=== PATIENT | female | born 1940 | race Caucasian/White ===

== ENCOUNTER 2016-10-09 17:15 | Emergency (ER) | payer MEDICARE ==
[~2016-10-09] VITALS: Ht 152.4 cm; Wt 55.9 kg
[2016-10-09 17:18] VITALS: BP 149/84; PULSE 87; RESP 18; O2SAT 94
[2016-10-09 17:35] LABS: BASOPHILS % (AUTO) 0.5 % (0-3); MONOCYTES % (AUTO) 10.6 % (4-12); Mean Corpuscular Hemoglobin 30.4 pg (27.0-35.0); Mean Corpuscular Volume 92.7 fL (81-100); Platelet Count 298 bil/L (150-400)
--- NOTE | 2016-10-09 17:47 | ED.REPORT ---
HPI-Chest Pain 40 and Over Date of Service Oct 09, 2016 ED Provider: Jarrett Royal MD This patient is a 76 year old female with a history of COPD presenting to the ED complaining of exacerbation of COPD with achy chest pain and SOB that started today. Since 09/28/2016, she states that she has been fatigued and her voice has been raspy. She states that she has not had pain since today's episode that ended one hour ago. She has cough with sputum but denies fever, congestion, sore throat, vision changes, headache, vomiting, diarrhea, dysuria, or leg edema. She is a former smoker. She has an appointment with Dr. Luo, fiscal agent, next week. She denies history of GA or stroke. Nursing Notes Stated Complaint: CHEST PAIN Chief Complaint: Chest Pain Nursing Notes Reviewed: Yes Allergies: Coded Allergies: shrimp (Verified Allergy, Severe, 10/09/16) amoxicillin (Verified Adverse Reaction, Intermediate, 10/09/16) n/v/d clavulanic acid (Verified Adverse Reaction, Intermediate, 10/09/16) n/v/d General Time Seen by MD: 17:47 Chief Complaint Shortness of breath Hx Obtained From: Patient Arrived By: Walk-in Sudden in Onset?: Yes Onset Occurred: Onset unknown (Chronic) Symptom Duration: Since onset Location: : Substernal Quality: Aching Radiation: : Does not radiate Severity: Current: Mild Severity: Maximum: Mild Recent Healthcare: No recent hospitalization Similar Sx Previous: Yes Past Medical History Past Medical History denies history of clot Reports: COPD, Denies: Stroke Past Surgical History none reported Smoking History Former Smoker Ambulatory Status Independent Review of Systems Constitutional: Reports: Fatigue, Denies: Fever Respiratory: Reports: Prod cough, yellow, Shortness of breath Cardiovascular: Reports: Chest pain, Denies: Edema GI: Denies: Diarrhea, Vomiting Neurologic: Denies: Headache, Vision change Complete sys rev & neg: except as marked. Female: Denies: Dysuria Physical Exam Initial Vital Signs Vital Signs (First) Date Time Temp Pulse Resp B/P Pulse Ox O2 Delivery O2 Flow Rate FiO2 10/09/16 17:18 36.4 87 18 149/84 94 Room Air Initial VS: Reviewed Head / Eyes: Atraumatic, Normocephalic, PERRL ENT: Mucous membranes moist, Conjunctiva normal, No scleral icterus Lymphatic: No lymphadenopathy Neurologic: Alert, Oriented Psychiatric: Mood/affect normal, Behavior normal, Normal thought content General/Constitutional: Awake, Alert Respiratory / Chest: Atraumatic, Breath sounds = bilat, No respiratory distress Diminished bilaterally, Crackles on left side Cardiovascular: Heart rate NL, Regular rhythm, Heart sounds NL Abdomen: Atraumatic, Soft, Non-tender Neck: Atraumatic, Supple, Full range of motion, No JVD Lower Extremity / Pelvis / MS: No edema Skin: Atraumatic, Color NL, No rash, Warm, Dry Well perfused Interpretation & Diagnostics Lab Results Interpretation Result Diagram: 10/09/16 1730 10/09/16 1730 Test 10/09/16 17:30 10/09/16 20:24 White Blood Count 9.3th/mm3 (3.8-10.1) Red Blood Count 4.54mil/mm3 (3.90-5.20) Hemoglobin 13.8g/dL (12.0-15.6) Hematocrit 42.1% (35.0-46.0) Mean Corpuscular Volume 92.7fL (81-100) Mean Corpuscular Hemoglobin 30.4pg (27.0-35.0) Mean Corpuscular Hemoglobin Concent 32.8% (32.0-37.0) Red Cell Distribution Width 14.1% (12.3-15.4) Platelet Count 298bil/L (150-400) Neutrophils (%) (Auto) 76.0% (40-74) Lymphocytes (%) (Auto) 10.8% (14-46) Monocytes (%) (Auto) 10.6% (4-12) Eosinophils (%) (Auto) 2.0% (0-5) Basophils (%) (Auto) 0.5% (0-3) D-Dimer < 0.5mg/L (<0.50) Sodium Level 137mEq/L (134-144) Potassium Level 3.9mEq/L (3.5-5.2) Chloride Level 97mEq/L (97-108) Carbon Dioxide Level 24mmol/L (18-29) Blood Urea Nitrogen 16mg/dL (8-27) Creatinine 0.66mg/dL (0.57-1.00) Estimat Glomerular Filtration Rate 125mL/min (>59) Glucose Level 100mg/dL (60-99) Calcium Level 9.4mg/dL (8.5-10.1) Magnesium Level 2.2mg/dL (1.6-2.6) Total Bilirubin 0.3mg/dL (0.0-1.2) Aspartate Amino Transf (AST/SGOT) 22U/L (0-50) Alanine Aminotransferase (ALT/SGPT) 17U/L (0-32) Alkaline Phosphatase 77U/L (25-165) Total Protein 7.3g/dL (6.4-8.4) Albumin 4.1g/dL (3.4-5.0) Troponin T < 0.010ug/L (0.0-0.011) Pulse Oximetry Interpretation Pulse Oximetry Interpretation: 94% on room air Pulse Oximetry: Pulse Ox normal ECG Interpretation ECG Interpretation: Normal sinus rhythm with a rate of 82, No ST elevation or depression Time: 17:30 Interpreted by: ED physician Normal ECG Interpretation: Normal rate, Normal sinus rhythm Abnormal T wave or ST segment: Non-specific ST changes X-Ray Chest Interpretation Chest Xray Interpretation: IMPRESSION: No acute cardiopulmonary disease process. Dictated by: Skye Keith MD, PhD on 10/09/2016 at 18:13 Interpretation / Wet Read by: Interpret - Radiologist Re-Eval/Medical Decision Med Decision/Clinical Course This is a very bebo 76-year-old female who suffers with chronic obstructive pulmonary disease. For the past few days she has had increasing cough and dyspnea on exertion. She has used her bronchodilators without relief. Today she had very mild chest heaviness associated with respiration. She did not have any classic anginal symptoms. She did not have any exertional chest tightness. Symptoms she felt felt her reminiscent of prior COPD attacks. She does not have a history of coronary disease, myocardial infarction or aortic dissection. On examination her vitals are stable and she is no distress. She did have poor air entry into the bases of her lungs as well as wheeze in the left lung and crackles in the left lung. Remainder of her exam was very benign. She is treated with bronchodilators and IV steroids and antibiotics. She felt much better. Repeat pulmonary examination was normal with good air entry. Chest x-ray is reassuring. Pneumothorax ruled out. Pneumonia seems unlikely with the normal chest x-ray and laboratory work. She is low risk well score and the negative d-dimer rules out pulmonary emboli effectively. I have a low clinical suspicion for pulmonary emboli. Serial troponins were negative. I have a low clinical suspicion for an acute coronary syndrome. Liliana did very well. GA was ruled out. At discharge she was completely asymptomatic and wished to go home. She will follow up closely with her primary care physician and return if she has any problems or any worsening symptoms. Time of Eval: 20:12 Patient Status: Condition improved Re-Evaluation/Progress Note: Pt. rechecked. Her condition has improved. Patient's plan for discharge has been discussed. Patient understands and agrees with the plan. All questions have been addressed at this time. Counseled Regarding: Diagnosis, Lab results, Need for follow-up, When/why to return to ED Discharge & Departure Primary Impression: Acute exacerbation of chronic obstructive pulmonary disease (COPD) Additional Impression: Chest pain Chest pain type: chest pain on breathing Qualified Code: R07.1 - Chest pain on breathing Disposition: Home ( ) Discharge Condition All VS Reviewed: Yes Condition: Stable Patient Instructions: Chest Pain (ED), Chronic Obstructive Pulmonary Disease ( ED) Additional Instructions: Prednisone daily for 4 more days. Doxycycline twice daily for 5 days. Your ekg , heart blood tests and blood clot blood test were all reassuring. I suspect that you are having an exacerbation of COPD and infection is often the cause of this. Return to the emergency department if you have any problems or any worsening symptoms. Call your DrShan tomorrow to set up a follow up for the next couple of days. Referrals: Carin Aly (PCP) Karenibe Attestation Portions of this note were transcribed by Donovan Calvillo and Jazzmine Velasquez. I, Dr. Royal, personally performed the history, physical exam and medical decision- making; I reviewed and confirmed the accuracy of the information in the transcribed note. Signed by: Donovan Calvillo and Sharon Bourgeois, 10/09/2016 and 19:31. copies to: Carin Aly Todd P DO Oct 09, 2016 17:47 Olga Velasquez [Jazzmine] Oct 09, 2016 18:31 DONOVAN CALVILLO Oct 09, 2016 18:41
[2016-10-09 18:08] LABS: TROPONIN T < 0.010 ug/L (0.0-0.011)
[2016-10-09 18:12] VITALS: BP 158/83; PULSE 84; RESP 18
[2016-10-09 18:12] LABS: Magnesium 2.2 mg/dL (1.6-2.6)
--- NOTE | 2016-10-09 18:15 | DRSVH ---
PROCEDURE: X-RAY CHEST ONE VIEW, PORTABLE ([id number]) INDICATIONS: chest pain TECHNIQUE: One view of the chest was acquired. COMPARISON: [facility], CT, CT CHEST WO CON, 11/23/2015, 15:39. FINDINGS: Surgical changes and devices: None. Lungs and pleura: No pleural effusions or pneumothorax. Lungs are clear. Emphysematous changes note d in the lungs bilaterally. Mediastinum: Mediastinal contours appear normal. Heart size is normal. Bones and chest wall: No suspicious bony lesions. Overlying soft tissues appear unremarkable. IMPRESSION: No acute cardiopulmonary disease process. Dictated by: Skye Keith MD, PhD on 10/09/2016 at 18:13 Approved by: Skye Keith MD, PhD on 10/09/2016 at 18:13
[2016-10-09] MEDS ORDERED: Albuterol-Ipratropium 3 mL Inhalation Solution NEB PRN (18:20)
[2016-10-09] MEDS ORDERED: MethylprednisoLONE Sodium Succinate 62.5 mg/mL 2 mL Inj IVPUSH ONE (18:20)
[2016-10-09] MEDS ORDERED: levoFLOXacin Inj 500 MG in IV Premix 1 EACH IV ONE (18:20)
[2016-10-09 18:48] VITALS: PULSE 77; RESP 18; O2SAT 95
[2016-10-09 20:30] VITALS: BP 156/73; PULSE 89; RESP 20; O2SAT 93
== END 2016-10-09 20:39 | disposition home or self-care (01) ==
LOC: SED 17:15
DX: J44.1 Chronic obstructive pulmonary disease with (acute) exacerbation (principal); R07.1 Chest pain on breathing; Z87.891 Personal history of nicotine dependence; Z88.0 Allergy status to penicillin
CPT/HCPCS: 36415; 71010; 80053; 82948; 83735; 84484; 85025; 85379; 93005; 94664; 96365; 96375; 99285; J2930

== ENCOUNTER 2017-02-16 13:41 | Emergency (ER) | payer MEDICARE ==
[~2017-02-16] VITALS: Ht 154.9 cm; Wt 57.7 kg
[2017-02-16 13:46] VITALS: BP 151/96; PULSE 91; RESP 16; O2SAT 94
[2017-02-16] MEDS ORDERED: Albuterol-Ipratropium 3 mL Inhalation Solution NEB ONE (15:05)
[2017-02-16 15:31] VITALS: BP 172/85; PULSE 84; RESP 11; O2SAT 93
--- NOTE | 2017-02-16 15:52 | ED.REPORT ---
HPI-Overdose/Alcohol Toxicity Date of Service February 16, 2017 ED Provider: Thomas Maya MD Patient is a 76 year old female with a hx of alcoholism and COPD who presents to the ED complaining of alcohol withdrawals. She reports that she was drinking beer for 2 weeks until yesterday afternoon. Associated symptoms include diarrhea , tremors, and vomiting (onset this morning). She denies fever, melena, hematochezia, lightheadedness, or any other symptoms. She has been taking Benadryl (2-3 pills a day) to reduce her shaking. She denies a hx of seizures during withdrawal. She denies having alcohol at home. Nursing Notes Stated Complaint: ALCOHOL WITHDRAWAL Chief Complaint: Substance Abuse Nursing Notes Reviewed: Yes Allergies: Coded Allergies: shrimp (Verified Allergy, Severe, 02/16/17) amoxicillin (Verified Adverse Reaction, Intermediate, 02/16/17) n/v/d clavulanic acid (Verified Adverse Reaction, Intermediate, 02/16/17) n/v/d Scheduled Lorazepam (Lorazepam) 1 Mg Tablet 1 MG PO ASDIRECTED General Time Seen by Provider: 15:51 Chief Complaint Other (EtOH abuse ) Hx Obtained From: Patient Arrived By: Walk-in Onset Occurred: Yesterday Similar Sx Previous: Yes Risk-Overdose/Alcohol Tox )( Suicide Risk Stratification : Alcohol use: Previous attemptNo: Substance abuse RF Statements: Risk factors reviewed Past Medical History Past Medical History denies history of clot EtOH abuse Reports: COPD, Hypertension, Denies: Congestive heart failure, Coronary artery disease, Diabetes mellitus Denies: Atrial fibrillation, Seizure disorder Past Surgical History Reports: Tonsillectomy Smoking History Former Smoker Social History Father was alcoholic. Son committed suicide Alcohol Use: In recovery Drug Use: Denies drug use Other Social History: , Local resident Ambulatory Status Independent Review of Systems +alcohol withdrawal Constitutional: Denies: Fever GI: Reports: Diarrhea, Vomiting, Denies: Hematochezia, Melena Neurologic: Reports: Shaking, Denies: Lightheaded Complete sys rev & neg: except as marked. Physical Exam Initial Vital Signs Vital Signs (First) Date Time Temp Pulse Resp B/P Pulse Ox O2 Delivery O2 Flow Rate FiO2 02/16/17 13:46 36.2 91 16 151/96 94 Room Air Initial VS: Reviewed, Vital signs normal Head / Eyes: Atraumatic, Normocephalic Neck: Full range of motion Skin: Warm, Dry General/Constitutional: Awake, Alert, Well developed Mildly tremulous Respiratory / Chest: Breath sounds NL, Breath sounds = bilat, No respiratory distress Cardiovascular: Heart rate NL, Regular rhythm, Heart sounds NL Abdomen: Soft, Non-tender Neurologic: Oriented X3, Speech NL Psychiatric: Affect NL, Mood NL, Not suicidal, Not homicidal, No hallucinations , Judgment/insight NL, Thought content NL Re-Eval/Medical Decision Re-Evaluation/Progress : Time of Eval: 15:59 )( Re-Eval Psychiatric: No danger to self Re-Evaluation/Progress Note: Discussed plan for discharge. Patient understands and agrees with plan. All questions addressed at this time. Counseled Regarding: Diagnosis, Lab results, Need for follow-up, When/why to return to ED Discharge & Departure Impression: Primary Impression: Alcohol withdrawal Complication of substance-induced condition: uncomplicated Qualified Code: F10.230 - Alcohol dependence with withdrawal, uncomplicated )( Condition at Discharge: No danger to self, No danger to others Disposition: Home Discharge Condition All VS Reviewed: Yes Condition: Improved Patient Instructions: Alcohol Withdrawal (GEN) Additional Instructions: Of course you should abstain from alcohol. I do not suspect severe withdrawal at this time. I recommended lorazepam 1 tablet every 6 hours for the next 2 days. Then, take one tablet every 8 hours for the following day and then 1 tablet twice daily for another day and then stop. It would be appropriate to discontinue the medication if you find that it makes you feel excessively sleepy or tired. Do not take this medication at all if you are drinking alcohol. Referrals: Carin Aly (PCP) Scribe Attestation Portions of this note were transcribed by Helena Loya. I, Dr. Maya personally performed the history, physical exam and medical decision-making; I reviewed and confirmed the accuracy of the information in the transcribed note. Signed by: Helena Loya 02/16/17, [id number] copies to: Carin Aly Kirk H MD February 16, 2017 15:52 HELENA LOYA February 16, 2017 16:00
[2017-02-16] MEDS ORDERED: LORazepam 1 mg Tablet PO ONE (16:05)
[2017-02-16] MEDS ORDERED: LORA1TAB PO (16:07)
[2017-02-16 16:19] VITALS: BP 172/85; PULSE 84; RESP 11; O2SAT 93
== END 2017-02-16 16:19 | disposition home or self-care (01) ==
LOC: SED 13:41
DX: F10.230 Alcohol dependence with withdrawal, uncomplicated (principal); R19.7 Diarrhea, unspecified; R25.1 Tremor, unspecified; R11.10 Vomiting, unspecified; J44.9 Chronic obstructive pulmonary disease, unspecified; I10 Essential (primary) hypertension; Z87.891 Personal history of nicotine dependence; Z91.013 Allergy to seafood; Z88.1 Allergy status to other antibiotic agents; Z88.8 Allergy status to other drugs, medicaments and biological substances

== ENCOUNTER 2017-02-22 19:20 | Emergency (ER) | payer MEDICARE ==
[~2017-02-22] VITALS: Ht 154.9 cm; Wt 57.7 kg
[~2017-02-22 19:20] MED LIST: LORA1TAB PO
[2017-02-22 19:22] VITALS: BP 180/79; PULSE 102; RESP 20; O2SAT 94
[2017-02-22 19:43] VITALS: BP 157/91; PULSE 95; RESP 16; O2SAT 94
--- NOTE | 2017-02-22 20:26 | ED.REPORT ---
HPI-General Illness Date of Service February 22, 2017 ED Provider: Dr. Royal Pt is a 76 year old female with a history of alcohol abuse who presents to the ED with complaints of withdraws from alcohol. She reports that she is experiencing muscle aches and tremors. Pt reports that she had her last drink last Thursday. She denies any chest pain, shortness of breath, cough, nausea, vomiting, diarrhea or any other complaints. Nursing Notes Stated Complaint: ALCOHOL WITHDRAWLS Chief Complaint: Substance Abuse Nursing Notes Reviewed: Yes Allergies: Coded Allergies: shrimp (Verified Allergy, Severe, 02/22/17) amoxicillin (Verified Adverse Reaction, Intermediate, 02/22/17) n/v/d clavulanic acid (Verified Adverse Reaction, Intermediate, 02/22/17) n/v/d Scheduled Lorazepam (Lorazepam) 1 Mg Tablet 1 MG PO ASDIRECTED General Time Seen by MD: 20:26 Chief Complaint Other (Withdrawal) Hx Obtained From: Patient Arrived By: Walk-in Sudden in Onset?: Yes Onset Occurred: Just prior to arrival Context of Onset: EtOH use Symptom Duration: Since onset Severity: Current: Mild Severity: Maximum: Moderate Similar Sx Previous: Yes Past Medical History Past Medical History denies history of clot EtOH abuse Reports: COPD, Hypertension Past Surgical History Reports: Tonsillectomy Smoking History Former Smoker Social History Father was alcoholic. Son committed suicide Alcohol Use: In recovery Drug Use: Denies drug use Other Social History: , Local resident Ambulatory Status Independent Review of Systems Full Review of Systems Constitutional: Reports: Chills, Weakness - generalized, Denies: Fever, Malaise Respiratory: Denies: Non-productive cough, Shortness of breath, Wheezing Cardiovascular: Denies: Chest pain, Syncope GI: Reports: Nausea, Denies: Abdominal pain, Constipation, Diarrhea, Vomiting Female: Denies: Dysuria, Flank pain, Urinary frequency, Urinary urgency Musculoskeletal: Denies: Back pain Skin: Denies Diaphoresis Neurologic: Reports: Shaking, Denies: Abnormal movement, Change LOC, Dizziness, Headache, Syncope, Weakness Complete sys rev & neg: except as marked. Physical Exam Vital Signs Vital Signs Date Time Temp Pulse Resp B/P Pulse Ox O2 Delivery O2 Flow Rate FiO2 02/22/17 23:44 36.0 88 16 138/89 96 Room Air 02/22/17 23:17 88 16 138/89 96 Room Air 02/22/17 21:11 78 16 95 Room Air 02/22/17 19:43 95 16 157/91 94 02/22/17 19:22 36.0 102 20 180/79 94 Room Air Initial VS: Reviewed Head / Eyes: Atraumatic, Normocephalic, PERRL ENT: Mucous membranes moist, Conjunctiva normal, No scleral icterus Neck: Supple, Non-tender, Full range of motion Respiratory: Breath sounds normal, Clear to auscultation, No respiratory distress Cardiovascular: Regular rate & rhythm, Heart sounds normal, Intact distal pulses Abdomen / GI: Soft, Non-tender, No guarding, No rebound, No distention Skin: Warm, Dry, No cyanosis Neurologic: Alert, Oriented, Nonfocal Psychiatric: Mood/affect normal, Behavior normal, Normal thought content General/Constitutional: Awake, Alert Appearance / Presentation: Positive: Uncomfortable Mild tremors Interpretation & Diagnostics Lab Results Interpretation Result Diagram: 02/22/17204902/22/172049 Test 02/22/17 20:50 02/22/17 21:06 White Blood Count 10.1th/mm3 (3.8-10.1) Red Blood Count 4.13mil/mm3 (3.90-5.20) Hemoglobin 12.8g/dL (12.0-15.6) Hematocrit 37.9% (35.0-46.0) Mean Corpuscular Volume 92fL (81-100) Mean Corpuscular Hemoglobin 31.0pg (27.0-35.0) Mean Corpuscular Hemoglobin Concent 33.8% (32.0-37.0) Red Cell Distribution Width 14.3% (12.3-15.4) Platelet Count 275bil/L (150-400) Neutrophils (%) (Auto) 76.2% (40-74) Lymphocytes (%) (Auto) 12% (14-46) Monocytes (%) (Auto) 9.5% (4-12) Eosinophils (%) (Auto) 1.8% (0-5) Basophils (%) (Auto) 0.5% (0-3) Sodium Level 132mEq/L (134-144) Potassium Level 3.6mEq/L (3.5-5.2) Chloride Level 94mEq/L (97-108) Carbon Dioxide Level 23mmol/L (18-29) Blood Urea Nitrogen 12mg/dL (8-27) Creatinine 0.50mg/dL (0.57-1.00) Estimat Glomerular Filtration Rate 172mL/min (>59) Glucose Level 110mg/dL (60-99) Calcium Level 9.6mg/dL (8.5-10.1) Total Bilirubin 0.3mg/dL (0.0-1.2) Aspartate Amino Transf (AST/SGOT) 16U/L (0-50) Alanine Aminotransferase (ALT/SGPT) 12U/L (0-32) Alkaline Phosphatase 63U/L (25-165) Total Protein 6.6g/dL (6.4-8.4) Albumin 4.0g/dL (3.4-5.0) Thyroid Stimulating Hormone (TSH) 2.990uIU/mL (0.450-4.500) Urine Color Straw (YELLOW) Urine Appearance Clear (CLEAR,HAZY) Urine pH 6.5 (5.0-8.0) Urine Specific [place] 1.005 (1.003-1.035) Urine Protein Negativemg/dL (NEG,TRACE) Urine Glucose (UA) Negativemg/dL (NEGATIVE) Urine Ketones Negativemg/dL (NEGATIVE) Urine Occult Blood Negative (NEGATIVE) Urine Nitrite Negative (NEGATIVE) Urine Bilirubin Negative (NEGATIVE) Urine Urobilinogen Normalmg/dL (NORMAL) Urine Leukocyte Esterase Trace (NEGATIVE) Urine RBC 0-2/hpf (0-2) Urine WBC 0-5/hpf (0-5) Urine Epithelial Cells Few/hpf (NONE-MOD) Urine Crystals None seen (NONE SEEN) Urine Bacteria Few/hpf (NONE-FEW) Urine Hyaline Casts None/lpf (NONE) Urine Granular Casts None seen (NONE SEEN) Urine Waxy Casts None seen (NONE SEEN) Urine Red Blood Cell Casts None seen (NONE SEEN) Urine White Blood Cell Casts None seen (NONE SEEN) Urine Mucus Present (None Seen) Urine Trichomonas None seen (NONE SEEN) Urine Yeast None (NONE SEEN) Urinalysis Comment None Urine Culture Reflexed Indicated CT Head Interpretation Conclusion: generalized mild to moderate involutional changes, right-sided gliosis/encephalomalacia as above, and 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 Exact stability of findings is unknown in the absence of prior studies for comparison. No definite acute intracranial abnormality. Consider diffusion-weighted MRI for persistent clinical concerns. Study: Head CT no contrast Interpretation / Wet Read by: Interpret - Radiologist Re-Eval/Medical Decision Med Decision/Clinical Course Liliana was medicated and she looked and felt much better. She was having no further tremor. CIWA was score was undetectable. She felt ready be discharged home. Metabolically she is doing well. CT of her brain was normal. She felt that she was afforded more relief with the Valium and it did not cause of the side effects lorazepam. I will place her on a short course of Valium for any breakthrough withdrawal symptoms she will have. Routine sedative warnings given. Recommend close outpatient follow-up. Source of Hx: Old records Time of Eval: 23:15 Re-Evaluation/Progress Note: Pt is rechecked and informed of her labs and imaging results and the plan to discharge her at this time. She understands and agrees, all questions are addressed. Counseled Regarding: Diagnosis, Lab results, When/why to return to ED Discharge & Departure Primary Impression: Alcohol withdrawal Complication of substance-induced condition: with perceptual disturbance Qualified Code: F10.232 - Alcohol dependence with withdrawal with perceptual disturbance Disposition: Home Discharge Condition All VS Reviewed: Yes Condition: Stable Patient Instructions: Alcohol Dependence (ED) Additional Instructions: Your CT and lab results are reassuring. Congratulations on your abstinence from alcohol. It appears that you are still having withdrawal symptoms, take 5mg of Valium 1 every 8 hours as needed for withdrawal. Follow up with your primary care provider later this week. Return to the emergency department with any new or worsening symptoms. Do not drive tonight as you have received sedating medication. Do not combine Valium with any other sedating medications or alcohol , as the combination could be life threatening. Referrals: Carin Aly (PCP) Karenibjude Attestation Portions of this note were transcribed by Linda Fatima. I, Dr. Royal personally performed the history, physical exam and medical decision-making; I reviewed and confirmed the accuracy of the information in the transcribed note. Signed by: Sharon Dennis, 02/22/2017 23:33 copies to: Carin Aly Todd P DO February 22, 2017 20:26 ELIAS FATIMA February 22, 2017 20:30
[2017-02-22] MEDS ORDERED: Thiamine Inj 100 MG, Folic Acid Inj 1 MG, Magnesium Sulfate 50% Inj 2 GM, Multivitamins... IV ONE ×5 (20:30)
[2017-02-22 21:09] LABS: EOSINOPHILS % (AUTO) 1.8 % (0-5); MONOCYTES % (AUTO) 9.5 % (4-12); Mean Corpuscular Volume 92 fL (81-100); NEUTROPHILS % (AUTO) 76.2 % (40-74); Platelet Count 275 bil/L (150-400)
[2017-02-22 21:10] LABS: BASOPHILS % (AUTO) 0.5 % (0-3)
[2017-02-22 21:11] VITALS: PULSE 78; RESP 16; O2SAT 95
[2017-02-22 21:17] LABS: APPEARANCE,URINE CLEAR (CLEAR,HAZY); COLOR,URINE STRAW (YELLOW); PH,URINE 6.5 (5.0-8.0)
[2017-02-22 21:18] LABS: OCCULT BLOOD,URINE NEGATIVE (NEGATIVE); UROBILINOGEN,URINE NORMAL (NORMAL)
[2017-02-22 23:17] VITALS: BP 138/89; PULSE 88; RESP 16; O2SAT 96
[2017-02-22 23:44] VITALS: BP 138/89; PULSE 88; RESP 16; O2SAT 96
--- NOTE | 2017-02-23 07:47 | DRSVH ---
PROCEDURE: CT BRAIN WITHOUT CONTRAST ([id number]) INDICATIONS: altered mental status, alcohol abuse TECHNIQUE: Noncontrast 4.5 mm thick angled axial sections acquired from the foramen magnum to the vertex, with c oronal reformats. COMPARISON: None. FINDINGS: Image quality: Excellent. CSF spaces: Basal cisterns are patent. No extra-axial fluid collections. The ventricles are symmet cesia in size and shape. Brain: No intracranial bleeds or masses. There is cerebral volume loss for age, with resultant vent ricular and sulcal prominence. There are periventricular and deep white matter chronic small vessel ischemic changes. There is intracranial internal carotid artery atherosclerosis. In the right frontal lobe there is loss of davidson-white matter interface this extends into the white ma tter and into the very anterior aspect of the anterior limb of internal capsule and into the centrum semiovale more superiorly. It is thought to be an area of encephalomalacia somewhat higher up in the appearance of the consistent with evolving ischemic infarct. Skull and face: Calvarium and visualized facial bones appear intact, without suspicious lesions. Sinuses: Visualized sinuses and mastoids are clear. IMPRESSION: 1. Besides the atrophic change and small vessel ischemic change of aging there is in the right fronta l lobe area of decreased attenuation somewhat appears to be water density consistent with an older ev olving ischemic infarct. MRI could age this more efficiently or look for a portion that is more acute that cannot be distinguished on CT scan.. Dictated by: Jean Paul Owusu M.D. on 02/23/2017 at 7:41 this report corresponds to the findings of the preliminary NSR report. Approved by: Jean Paul Owusu M.D. on 02/23/2017 at 7:45
== END 2017-02-22 23:45 | disposition home or self-care (01) ==
LOC: SED 19:20
DX: F10.232 Alcohol dependence with withdrawal with perceptual disturbance (principal); I10 Essential (primary) hypertension; J44.9 Chronic obstructive pulmonary disease, unspecified; Z87.891 Personal history of nicotine dependence; Z88.1 Allergy status to other antibiotic agents; Z88.8 Allergy status to other drugs, medicaments and biological substances; Z91.013 Allergy to seafood
CPT/HCPCS: 36415; 70450; 80053; 81000; 84443; 85025; 87086; 87088; 96365; 96366; 96375; 99285; J3360; J3475; J7030

== ENCOUNTER 2017-03-31 04:33 | Emergency (ER) | payer MEDICARE ==
[~2017-03-31] VITALS: Ht 154.9 cm; Wt 57.4 kg
[2017-03-31 04:35] VITALS: BP 148/84; PULSE 88; RESP 18; O2SAT 96
--- NOTE | 2017-03-31 04:41 | ED.REPORT ---
HPI-General Illness Date of Service Mar 31, 2017 ED Provider: Dr. Camejo 76 y/o female with a hx of alcohol abuse (thirty days in recovery), COPD (uses Albuterol) and HTN presents to the ED complaining of tremors, onset yesterday. Associated sx include nausea, an episode of vomiting and diarrhea all night. She took Imodium which resolved her sx. She also reports chronic intermittent abdominal cramps and irritable bowel. The pt has not had a drink in over a month. She states "I took a third of a hydrocodone yesterday. I was just shaking so bad". She is here believing that she still having withdrawal shakes , but clearly is not. She does not have any more of her previously prescribed Ativan. Nursing Notes Stated Complaint: ALCOHOL WITHDRAWALS Chief Complaint: Substance Abuse Nursing Notes Reviewed: Yes Allergies: Coded Allergies: shrimp (Verified Allergy, Severe, 02/22/17) amoxicillin (Verified Adverse Reaction, Intermediate, 02/22/17) n/v/d clavulanic acid (Verified Adverse Reaction, Intermediate, 02/22/17) n/v/d Scheduled Lorazepam (Lorazepam) 1 Mg Tablet 1 MG PO ASDIRECTED Metoprolol Tartrate (Metoprolol Tartrate) 25 Mg Tablet 12.5 MG PO BID General Time Seen by MD: 04:41 Chief Complaint Other (Tremors) Hx Obtained From: Patient Arrived By: Walk-in Sudden in Onset?: Yes Onset Occurred: Yesterday Symptom Duration: Since onset Severity: Current: No pain currently Severity: Maximum: No pain Recent Healthcare: Recent doctor visit Similar Sx Previous: No Past Medical History Past Medical History denies history of clot EtOH abuse hypertension COPD Past Surgical History Reports: Tonsillectomy Smoking History Former Smoker Social History Father was alcoholic. Son committed suicide Alcohol Use: In recovery Drug Use: Denies drug use Other Social History: , Local resident Ambulatory Status Independent Review of Systems Full Review of Systems GI: Reports: Diarrhea, Nausea, Vomiting Neurologic: Reports: Shaking Complete sys rev & neg: except as marked. Physical Exam Vital Signs Vital Signs Date Time Temp Pulse Resp B/P Pulse Ox O2 Delivery O2 Flow Rate FiO2 03/31/17 04:35 36.1 88 18 148/84 96 Initial VS: Reviewed Head / Eyes: Atraumatic, Normocephalic Neck: Supple, Non-tender, Full range of motion Extremities: Vascular intact, Neuro intact, No swelling, No tenderness Skin: Warm, Dry, No cyanosis Neurologic: Alert, Oriented, Nonfocal General/Constitutional: Awake, Alert, Cooperative Intermittent mild tremors that are more severe when she is paying attention to them or exhibiting her tremors as compared to when she is distracted and talking. Not having ETOH withdrawals. Respiratory / Chest: Atraumatic, Breath sounds NL, Breath sounds = bilat, No respiratory distress, No rales, No rhonchi, No wheezing Cardiovascular: Heart rate NL, Regular rhythm, Heart sounds NL, No gallop, No murmurs, No rubs Abdomen: Atraumatic, Soft, Non-tender, No guarding, No rebound Neurologic: Oriented X3, Speech NL, No motor deficits, No sensory deficits Interpretation & Diagnostics Lab Results Interpretation Result Diagram: 03/31/17 0509 03/31/17 0509 Test 03/31/17 05:09 White Blood Count 7.8th/mm3 (3.8-10.1) Red Blood Count 4.48mil/mm3 (3.90-5.20) Hemoglobin 13.5g/dL (12.0-15.6) Hematocrit 40.7% (35.0-46.0) Mean Corpuscular Volume 90.8fL (81-100) Mean Corpuscular Hemoglobin 30.1pg (27.0-35.0) Mean Corpuscular Hemoglobin Concent 33.2% (32.0-37.0) Red Cell Distribution Width 14.0% (12.3-15.4) Platelet Count 275bil/L (150-400) Neutrophils (%) (Auto) 73.1% (40-74) Lymphocytes (%) (Auto) 12.7% (14-46) Monocytes (%) (Auto) 9.4% (4-12) Eosinophils (%) (Auto) 3.9% (0-5) Basophils (%) (Auto) 0.8% (0-3) Sodium Level 138mEq/L (134-144) Potassium Level 4.4mEq/L (3.5-5.2) Chloride Level 99mEq/L (97-108) Carbon Dioxide Level 24mmol/L (18-29) Blood Urea Nitrogen 13mg/dL (8-27) Creatinine 0.61mg/dL (0.57-1.00) Estimat Glomerular Filtration Rate 137mL/min (>59) Glucose Level 104mg/dL (60-99) Calcium Level 9.9mg/dL (8.5-10.1) Magnesium Level 2.3mg/dL (1.6-2.6) Total Bilirubin 0.4mg/dL (0.0-1.2) Aspartate Amino Transf (AST/SGOT) 15U/L (0-50) Alanine Aminotransferase (ALT/SGPT) 13U/L (0-32) Alkaline Phosphatase 64U/L (25-165) Total Protein 6.7g/dL (6.4-8.4) Albumin 4.0g/dL (3.4-5.0) Thyroid Stimulating Hormone (TSH) 4.550uIU/mL (0.450-4.500) Free Thyroxine 1.17ng/dL (0.82-1.77) Re-Eval/Medical Decision Med Decision/Clinical Course 76-year-old female a month out from last alcohol ingestion with a history of serious alcoholism and withdrawal in the past, presents now with a mild tremor. She is mildly hypertensive, mildly tachycardic, but unlikely in active withdrawal after this length of time. The tremor is probably anxiety induced, and she may well have some element of neurological injury from her years of alcohol abuse leading to secondary tremor. The tremor is prominent when she is paying attention to it, much less prominent absent when not. It is not parkinsonian in character, and in fact quite the opposite. I suspect this has some element of benign essential tremor plus minus contribution of neurologic damage over the years alcoholism. She has responded nicely to a low dose of metoprolol (12.5 mg) and will begin twice a day metoprolol 12.5 mg. Plan follow up with PCP. Avoid ongoing benzodiazepines. Discussed all this with her explicitly. Source of Hx: Old records Time of Eval: 05:56 Re-Evaluation/Progress Note: Rechecked pt. She reports feeling better. Counseled Regarding: Diagnosis Discharge & Departure Shift Change Sign-Out Response to Therapy: Improved Primary Impression: Essential tremor Disposition: Home Discharge Condition All VS Reviewed: Yes Referrals: Carin Aly (PCP) Scribe Attestation Portions of this note were transcribed by Patricia Hernandez. I, , personally performed the history, physical exam and medical decision- making;I reviewed and confirmed the accuracy of the information in the transcribed note. Signed by Sharon Siegel. 03/31/17 05:18 copies to: Carin Aly Christopher W MD Mar 31, 2017 04:41 Patricia Hernandez Mar 31, 2017 04:59
[2017-03-31 05:16] LABS: BASOPHILS % (AUTO) 0.8 % (0-3); EOSINOPHILS % (AUTO) 3.9 % (0-5); MONOCYTES % (AUTO) 9.4 % (4-12); Mean Corpuscular Hemoglobin 30.1 pg (27.0-35.0); Mean Corpuscular Volume 90.8 fL (81-100); NEUTROPHILS % (AUTO) 73.1 % (40-74); Platelet Count 275 bil/L (150-400)
[2017-03-31 05:57] LABS: Magnesium 2.3 mg/dL (1.6-2.6)
[2017-03-31] MEDS ORDERED: METO25TA6 PO (06:08)
[2017-03-31 06:20] VITALS: BP 139/75; PULSE 67; RESP 20; O2SAT 96
== END 2017-03-31 06:20 | disposition home or self-care (01) ==
LOC: SED 04:33
DX: G25.0 Essential tremor (principal); R11.2 Nausea with vomiting, unspecified; R19.7 Diarrhea, unspecified; J44.9 Chronic obstructive pulmonary disease, unspecified; I10 Essential (primary) hypertension; Z87.891 Personal history of nicotine dependence; Z88.1 Allergy status to other antibiotic agents; Z88.8 Allergy status to other drugs, medicaments and biological substances; Z91.013 Allergy to seafood

== ENCOUNTER 2017-04-13 09:38 | Emergency (ER) | payer MEDICARE ==
[~2017-04-13] VITALS: Ht 154.9 cm; Wt 55.0 kg
[~2017-04-13 09:38] MED LIST changes: +METO25TA6 PO
[2017-04-13 09:43] VITALS: BP 113/65; PULSE 85; RESP 18; O2SAT 97
--- NOTE | 2017-04-13 10:02 | ED.REPORT ---
HPI-General Illness Date of Service Apr 13, 2017 ED Provider: Saima Melgar MD Pt is a 76 year old female with a history of depression, COPD, alcohol use, and HTN who presents to the ED complaining of malaise onset for the past 3 months. She c/o associated suicidal ideations without plan, diaphoresis, decreased appetite and fluid uptake, anxiety, shaking, and chronic nausea. She denies diarrhea, constipation, and any other symptoms. The pt reports that she has had multiple hospital visits for her symptoms stating that she was provided Ativan previously without relief. She states that she last drank alcohol on 02/22/17 after being presenting to the ED and being diagnosed with alcohol withdrawal on the same day. Nursing Notes Stated Complaint: SWEATS/SICK Chief Complaint: General Complaint Nursing Notes Reviewed: Yes Allergies: Coded Allergies: shrimp (Verified Allergy, Severe, 02/22/17) amoxicillin (Verified Adverse Reaction, Intermediate, 02/22/17) n/v/d clavulanic acid (Verified Adverse Reaction, Intermediate, 02/22/17) n/v/d Scheduled Duloxetine (Cymbalta) 20 Mg Capsule 20 MG PO DAILY Lorazepam (Lorazepam) 1 Mg Tablet 1 MG PO ASDIRECTED Metoprolol Tartrate (Metoprolol Tartrate) 25 Mg Tablet 12.5 MG PO BID Scheduled PRN Ondansetron (Zofran) 4 Mg Tablet 4 MG PO Q4H PRN PRN For Nausea General Time Seen by MD: 10:00 Chief Complaint Other (Malaise) Hx Obtained From: Patient Arrived By: Walk-in Sudden in Onset?: No Onset Occurred: More than a week ago... (3 months) Symptom Duration: Since onset Severity: Current: No pain currently Severity: Maximum: No pain Recent Healthcare: Recent doctor visit Similar Sx Previous: No Past Medical History Past Medical History EtOH abuse Depression Anxiety Chronic nausea Reports: COPD, Hypertension Past Surgical History Reports: Tonsillectomy Smoking History Former Smoker Social History Father was alcoholic. Son committed suicide Alcohol Use: In recovery Drug Use: Denies drug use Other Social History: , Local resident Ambulatory Status Independent Review of Systems + Decreased food and fluid intake + Difficulty concentrating and focusing + Increased sleeping Full Review of Systems Constitutional: Reports: Malaise GI: Reports: Nausea (chronic), Denies: Constipation, Diarrhea Endocrine: Reports: Weight loss Skin: Reports Diaphoresis Neurologic: Reports: Shaking Psychiatric: Reports: Anxiety, Suicidal ideation Complete sys rev & neg: except as marked. Physical Exam Vital Signs Vital Signs Date Time Temp Pulse Resp B/P Pulse Ox O2 Delivery O2 Flow Rate FiO2 04/13/17 09:43 35.8 85 18 113/65 97 Room Air Initial VS: Reviewed Head / Eyes: Atraumatic, Normocephalic Neck: Supple, Full range of motion Respiratory: Breath sounds normal, Clear to auscultation, No respiratory distress Cardiovascular: Regular rate & rhythm, Heart sounds normal, Intact distal pulses Abdomen / GI: Soft, Non-tender Extremities: Vascular intact, Neuro intact Skin: Warm, Dry, No cyanosis Neurologic: Alert, Oriented, Nonfocal Psychiatric: Mood/affect normal, Behavior normal General/Constitutional: Awake, Alert, Cooperative Abnormal Mood/Affect: Positive: Flat affect Good eye contact. Her ROS including weight loss, difficulty concentrating and focusing, chronic nausea, and decreased appetite are signs for depression. Interpretation & Diagnostics Interpretation & Diagnostics: Dip urine has 1+ leukocytes all the rest is unremarkable, suspect contaminant will not treat and will wait for culture Lab Results Interpretation Result Diagram: 04/13/17 1010 04/13/17 1010 Test 04/13/17 10:10 04/13/17 10:39 White Blood Count 13.2th/mm3 (3.8-10.1) Red Blood Count 4.80mil/mm3 (3.90-5.20) Hemoglobin 14.7g/dL (12.0-15.6) Hematocrit 44.2% (35.0-46.0) Mean Corpuscular Volume 92.1fL (81-100) Mean Corpuscular Hemoglobin 30.6pg (27.0-35.0) Mean Corpuscular Hemoglobin Concent 33.3% (32.0-37.0) Red Cell Distribution Width 13.9% (12.3-15.4) Platelet Count 298bil/L (150-400) Neutrophils (%) (Auto) 83.8% (40-74) Lymphocytes (%) (Auto) 6.2% (14-46) Monocytes (%) (Auto) 7.3% (4-12) Eosinophils (%) (Auto) 2.1% (0-5) Basophils (%) (Auto) 0.4% (0-3) Sodium Level 133mEq/L (134-144) Potassium Level 4.1mEq/L (3.5-5.2) Chloride Level 93mEq/L (97-108) Carbon Dioxide Level 24mmol/L (18-29) Blood Urea Nitrogen 12mg/dL (8-27) Creatinine 0.78mg/dL (0.57-1.00) Estimat Glomerular Filtration Rate 103mL/min (>59) Glucose Level 105mg/dL (60-99) Calcium Level 10.2mg/dL (8.5-10.1) Total Bilirubin 0.6mg/dL (0.0-1.2) Aspartate Amino Transf (AST/SGOT) 18U/L (0-50) Alanine Aminotransferase (ALT/SGPT) 14U/L (0-32) Alkaline Phosphatase 66U/L (25-165) Total Protein 7.1g/dL (6.4-8.4) Albumin 4.2g/dL (3.4-5.0) Thyroid Stimulating Hormone (TSH) 2.640uIU/mL (0.450-4.500) [place] Top Tube Received (Received) Urine Color Straw (YELLOW) Urine Appearance Cloudy (CLEAR,HAZY) Urine pH 7.5 (5.0-8.0) Urine Specific [place] 1.010 (1.003-1.035) Urine Protein Negativemg/dL (NEG,TRACE) Urine Glucose (UA) Negativemg/dL (NEGATIVE) Urine Ketones Negativemg/dL (NEGATIVE) Urine Occult Blood Negative (NEGATIVE) Urine Nitrite Negative (NEGATIVE) Urine Bilirubin Negative (NEGATIVE) Urine Urobilinogen Normalmg/dL (NORMAL) Urine Leukocyte Esterase Small (NEGATIVE) Urine RBC 0-2/hpf (0-2) Urine WBC 0-5/hpf (0-5) Urine Epithelial Cells Occasional/hpf (NONE-MOD) Urine Crystals Amorphous phosphates Urine Bacteria None/hpf (NONE-FEW) Urine Hyaline Casts None/lpf (NONE) Urine Granular Casts None seen (NONE SEEN) Urine Waxy Casts None seen (NONE SEEN) Urine Red Blood Cell Casts None seen (NONE SEEN) Urine White Blood Cell Casts None seen (NONE SEEN) Urine Mucus Present (None Seen) Urine Trichomonas None seen (NONE SEEN) Urine Yeast None (NONE SEEN) Urinalysis Comment None Urine Culture Reflexed Indicated Hold Urine Received (Received) Re-Eval/Medical Decision Source of Hx: Old records Time of Eval: 12:40 Re-Evaluation/Progress Note: Pt rechecked. Informed pt of Dr. Prajapati's recommendation. Informed pt of plan for discharge. Pt understands and agrees with plan for discharge. F/U instructions and RTER warnings given. All questions addressed. Consultation : Referral / Consult Name: Bacilio Prajapati MD Consulted With: Mental health Call Returned at: 12:30 Lumber Sorter Machine: Agrees with eval, Agrees with plan Note: Discussed pt's case. Recommends stopping Prozac and change to 20 mg of Cymbalta and follow up with her PCP. Counseled Regarding: Diagnosis, Lab results, Need for follow-up, When/why to return to ED Discharge & Departure Primary Impression: Depression Depression Type: unspecified Qualified Code: F32.9 - Major depressive disorder, single episode, unspecified Disposition: Home Discharge Condition All VS Reviewed: Yes Condition: Stable Patient Instructions: Depression (ED) Additional Instructions: I think that many of your symptoms are due to depression. Medical workup today does not reveal any acute or life-threatening issues that need to be changed or fixed. I have discussed your case with Dr. Prajapati, one of our psychiatrists, and he suggested thta you stop taking Prozac, begin taking 20 mg daily of Cymbalta instead. Please schedule an apt with Carin lAy in about 2 weeks to reveiw this new medication. If you have any thoughts of killing yourself, return to the Emergency Department. I recommend that you see a counselor. You can use zofran/ondansetron for your nausea, see if this can help with your appetite. Please stop both the ativan/lorazepam and the propranolol as neither seemed to help with your symptoms. Referrals: Carin Aly (PCP) Sharon Attestation Portions of this note were transcribed by Avani Damon. I, Dr. Melgar personally performed the history, physical exam and medical decision-making; I reviewed and confirmed the accuracy of the information in the transcribed note. Signed by: Sharon Corbin, 04/13/17 and 11:50. copies to: Carin Aly Shawna L MD Apr 13, 2017 10:01 Avani Cabrera Apr 13, 2017 10:10
[2017-04-13 10:38] LABS: BASOPHILS % (AUTO) 0.4 % (0-3); EOSINOPHILS % (AUTO) 2.1 % (0-5); MONOCYTES % (AUTO) 7.3 % (4-12); Mean Corpuscular Hemoglobin 30.6 pg (27.0-35.0); Mean Corpuscular Volume 92.1 fL (81-100); NEUTROPHILS % (AUTO) 83.8 % (40-74); Platelet Count 298 bil/L (150-400)
[2017-04-13 12:45] LABS: APPEARANCE,URINE CLOUDY (CLEAR,HAZY); COLOR,URINE STRAW (YELLOW); OCCULT BLOOD,URINE NEGATIVE (NEGATIVE); PH,URINE 7.5 (5.0-8.0); UROBILINOGEN,URINE NORMAL (NORMAL)
[2017-04-13] MEDS ORDERED: ONDA4TAB6 PO (12:55)
[2017-04-13] MEDS ORDERED: DULO20CA PO (12:55)
[2017-04-13] MEDS ORDERED: DULoxetine 20 mg DR Capsule PO ONE (12:55)
[2017-04-13 13:18] VITALS: BP 128/73; PULSE 53; RESP 18; O2SAT 97
== END 2017-04-13 13:19 | disposition home or self-care (01) ==
LOC: SED 09:38
DX: F41.8 Other specified anxiety disorders (principal); R45.851 Suicidal ideations; R61 Generalized hyperhidrosis; R63.0 Anorexia; R11.0 Nausea; B95.1 Streptococcus, group B, as the cause of diseases classified elsewhere; I10 Essential (primary) hypertension; J44.9 Chronic obstructive pulmonary disease, unspecified; Z87.891 Personal history of nicotine dependence; Z88.1 Allergy status to other antibiotic agents; Z88.8 Allergy status to other drugs, medicaments and biological substances; Z91.013 Allergy to seafood

== ENCOUNTER 2017-04-20 15:54 | Emergency (ER) | payer MEDICARE ==
[~2017-04-20] VITALS: Ht 154.9 cm; Wt 54.5 kg
[~2017-04-20 15:54] MED LIST changes: +DULO20CA PO; +ONDA4TAB6 PO
[2017-04-20 15:56] VITALS: BP 143/78; PULSE 88; RESP 20; O2SAT 95
--- NOTE | 2017-04-20 19:32 | ED.REPORT ---
HPI-Psychiatric Illness Date of Service Apr 20, 2017 ED Provider: Jarrett Royal DO Pt is a 76 year old female with a history of COPD, depression, and SI with attempts who presents to the ED complaining of suicidal ideation. She c/o associated depression, decreased appetite, insomnia, shaking, and diaphoresis. The pt reports that she has presented to the ED with similar symptoms 4 times previously. She states "I have been depressed since the 16 of February. I am scared if I stay at home, I will kill myself. I have a plan to take every pill I have in the house." Pt was recently prescribed Cymbalta, but she reports that it was causing chills, diaphoresis, and nausea, resulting in her switching back to Prozac with a nurse's approval. Nursing Notes Stated Complaint: SUICIDAL Chief Complaint: Psychiatric Complaint Nursing Notes Reviewed: Yes Allergies: Coded Allergies: shrimp (Verified Allergy, Severe, 02/22/17) amoxicillin (Verified Adverse Reaction, Intermediate, 02/22/17) n/v/d clavulanic acid (Verified Adverse Reaction, Intermediate, 02/22/17) n/v/d Scheduled Duloxetine (Cymbalta) 20 Mg Capsule 20 MG PO DAILY Lorazepam (Lorazepam) 1 Mg Tablet 1 MG PO ASDIRECTED Metoprolol Tartrate (Metoprolol Tartrate) 25 Mg Tablet 12.5 MG PO BID Scheduled PRN Ondansetron (Zofran) 4 Mg Tablet 4 MG PO Q4H PRN PRN For Nausea General Time Seen by MD: 19:14 Chief Complaint Suicidal ideation Hx Obtained From: Patient Arrived By: Walk-in Onset Occurred: More than a week ago... (3 months) Symptom Duration: Since onset Severity: Current: No pain currently Severity: Maximum: No pain Recent Healthcare: Recent doctor visit Similar Sx Previous: Yes Risk-Psychiatric Illness Suicide Risk Stratification Suicide Risk Factors - Adult: : Previous attempt RF Statements: Risk factors reviewed Past Medical History Past Medical History EtOH abuse Depression Anxiety Chronic nausea Suicidal ideation with attempts Reports: COPD, Hypertension Past Surgical History Reports: Tonsillectomy Smoking History Former Smoker Social History Father was alcoholic. Son committed suicide Alcohol Use: In recovery Drug Use: Denies drug use Other Social History: , Local resident Ambulatory Status Independent Review of Systems + Decreased appetite Skin: Reports Diaphoresis Neurologic: Reports: Shaking Psychiatric: Reports: Depression, Insomnia, Suicidal ideation Complete sys rev & neg: except as marked. Physical Exam Initial Vital Signs Vital Signs (First) Date Time Temp Pulse Resp B/P Pulse Ox O2 Delivery O2 Flow Rate FiO2 04/20/17 15:56 36.9 88 20 143/78 95 Room Air Initial VS: Reviewed Head / Eyes: Atraumatic, Normocephalic Neck: Supple, Full range of motion Respiratory: Breath sounds normal, Clear to auscultation, No respiratory distress Cardiovascular: Regular rate & rhythm, Heart sounds normal, Intact distal pulses Abdomen / GI: Soft, Non-tender Extremities: Vascular intact, Neuro intact Skin: Warm, Dry, No cyanosis General/Constitutional: Awake, Alert, Cooperative Neurologic: Oriented X3, Speech NL, No motor deficits, No sensory deficits Abnormal Mood/Affect: Positive: Anxious Abnormal Thinking / Perception: Positive: Suicidal, with plan Interpretation & Diagnostics Lab Results Interpretation Test 04/20/17 19:12 Hold Urine Received (Received) Re-Eval/Medical Decision Med Decision/Clinical Course I appreciate the health care social worker evaluation. Liliana is very anxious. She is not however imminently suicidal. She thinks that if her anxiety is treated she will not have any problems whatsoever. She is agreed to come back if she has any suicidal thoughts. A short course of benzodiazepines were prescribed. She has had success with these in the past. I explained that they can be habit forming and she will only be used in the short-term. She understands. She has follow-up Thursday. She will return if she has any problems. She was with her son who agrees with this plan. She will not drive tonight or while under the influence of the benzodiazepines. Source of Hx: Old records Re-Evaluation/Progress : Time of Eval: 20:23 Re-Evaluation/Progress Note: Pt rechecked. Informed pt of plan for discharge. Pt understands and agrees with plan for discharge. F/U instructions and RTER warnings given. All questions addressed. Counseled Regarding: Diagnosis, Lab results, Need for follow-up, When/why to return to ED Discharge & Departure Impression: Primary Impression: Suicidal ideation Additional Impression: Anxiety Disposition: Home Discharge Condition All VS Reviewed: Yes Condition: Stable Patient Instructions: Anxiety (ED), Suicide Prevention for Adults (DC) Additional Instructions: Continue taking your anti-depressant as prescribed. Do not drive tonight. Take Lorazepam 1x every 8 hours as needed for severe breakthrough anxiety. Do not drive or drink alcohol while taking Lorazepam. This can be habit forming, so use it sparingly. Keep your follow up appointment on Thursday. Discuss long-term treatments for anxiety at your appointment. Return to the Emergency Department immediately if you have any suicidal or homicidal ideations. Referrals: Carin Aly (PCP) Scribe Attestation Portions of this note were transcribed by Avani Damon. I, Dr. Royal personally performed the history, physical exam and medical decision-making; I reviewed and confirmed the accuracy of the information in the transcribed note. Signed by : Sharon Corbin, 04/20/17 and 23:40. copies to: Carin Aly Todd P DO Apr 20, 2017 19:32 Avani Cabrera Apr 20, 2017 20:18
[2017-04-20] MEDS ORDERED: LORazepam 1 mg Tablet PO ONE (19:35)
[2017-04-20 20:31] VITALS: BP 115/69; PULSE 72; RESP 18; O2SAT 99
== END 2017-04-20 20:32 | disposition home or self-care (01) ==
LOC: SED 15:54
DX: R45.851 Suicidal ideations (principal); F41.9 Anxiety disorder, unspecified; J44.9 Chronic obstructive pulmonary disease, unspecified; F32.9 Major depressive disorder, single episode, unspecified; I10 Essential (primary) hypertension; Z91.013 Allergy to seafood; Z88.1 Allergy status to other antibiotic agents; Z87.891 Personal history of nicotine dependence

== ENCOUNTER 2017-04-29 14:20 | Emergency (ER) | payer MEDICARE ==
[~2017-04-29] VITALS: Ht 154.9 cm; Wt 53.6 kg
[2017-04-29 14:38] VITALS: BP 168/82; PULSE 75; O2SAT 94
--- NOTE | 2017-04-29 16:09 | DRSVH ---
PROCEDURE: X-RAY CHEST ONE VIEW, PORTABLE ([id number]) INDICATIONS: dizziness TECHNIQUE: One view of the chest was acquired. COMPARISON: [facility], CR, XR CHEST 1VW (PORTABLE), 10/09/2016, 17:43. FINDINGS: Surgical changes and devices: None. Lungs and pleura: No pleural effusions or pneumothorax. There is hyperinflation of the lungs with f lattening of the hemidiaphragms compatible with COPD. There is a bandlike right infrahilar opacity l ikely representing atelectasis. Mediastinum: Mediastinal contours appear normal. Heart size is normal. Bones and chest wall: No suspicious bony lesions. Overlying soft tissues appear unremarkable. IMPRESSION: 1. Findings compatible COPD redemonstrated without definite acute cardiopulmonary disease. 2. Probable atelectasis in the right infrahilar region. Dictated by: Jesus Robles M.D. on 04/29/2017 at 16:03 Approved by: Jesus Robles M.D. on 04/29/2017 at 16:07
== END 2017-04-29 17:00 | disposition left against medical advice (07) ==
LOC: SED 14:20
DX: I10 Essential (primary) hypertension (principal); Z53.21 Procedure and treatment not carried out due to patient leaving prior to being seen by health care provider